=== PATIENT | male | born 1985 | race Caucasian/White ===

== ENCOUNTER 2023-01-04 14:26 | Emergency (ER) | payer MEDICAID, OTHER ==
[~2023-01-04] VITALS: Ht 175.3 cm; Wt 124.3 kg
[2023-01-04 14:32] VITALS: BP 159/104
--- NOTE | 2023-01-04 14:36 | ED Upper Extremity ---
General Chief Complaint: Upper Extremity Stated Complaint: LT FINGER LAC Source: patient Exam Limitations: no limitations History of Present Illness Date Seen by Provider: Jan 04, 2023 Time Seen by Provider: 14:32 Initial Comments 37-year-old male that is [id number] with no pertinent past medical history coming in after he was pushing some garbage into a bin, and glass came through and cut his left index finger. Happened shortly prior to arrival. Meraz ving constant, throbbing pain that is mild. Nothing really seems to make it better or worse. He wrapped it up and then came here. He believes his last tetanus vaccine was more than 10 years ago. Otherwise denying any other acute complaints Allergies and Home Medications Allergies Coded Allergies: No Known Drug Allergies (Unverified , 01/04/23) Patient Home Medication List Home Medication List Reviewed: Yes Review of Systems Constitutional: No fever EENTM: no symptoms reported Respiratory: no symptoms reported Cardiovascular: no symptoms reported Gastrointestinal: no symptoms reported Past Zbnraic-Rkgmdy-Kzptdm Hx Patient Social History Substance use?: No Physical Exam Vital Signs Vital Signs - First Documented 01/04/23 14:32 Temp 36.1 Pulse 112 Resp 16 B/P (MAP) 159/104 (122) Pulse Ox 98 O2 Delivery Room Air Capillary Refill : Height, Weight, BMI Height: '" Weight: lbs. oz. kg; BMI Method: General Appearance: WD/WN, no apparent distress HEENT: PERRL/EOMI, normal ENT inspection, pharynx normal Neck: non-tender, full range of motion, supple, normal inspection Cardiovascular: regular rate, rhythm, no edema, no murmur Respiratory: chest non-tender, lungs clear, normal breath sounds, no respiratory distress, no accessory muscle use Gastrointestinal: normal bowel sounds, non tender, soft Shoulder: normal inspection Elbow/Forearm: normal inspection Wrist: Yes normal inspection Hand: Left (Left index finger on radial side proximally with a 3.5 cm laceration that is into subcutaneous tissue, no bone visualized, neurovascularly intact distal to the injury, normal tendon function) Neurologic/Tendon: normal sensation, normal motor functions, normal tendon functions Neurologic/Psychiatric: no motor/sensory deficits, alert, normal mood/affect Skin: normal color, warm/dry, other (Laceration to left index finger) Procedures/Interventions Wound Location: Upper Extremities Other Wound Location left index finger Wound Length (cm): 3.5 Wound's Depth, Shape: sub Q Wound Explored: clean Irrigated w/ Saline (ccs): 500 Anesthesia: 1% Lidocaine Volume Anesthetic (ccs): 4 Suture: Ethlion Suture Size: 4-0 Number of Sutures: 7 Progress A digital block was performed after cleaning the area, 27-gauge needle used, 4 cc of 1% lidocaine was infiltrated. Good anesthesia was achieved. Entire depth of the wound was visualized with no foreign body. Afterwards was closed with simple interrupted sutures. Progress/Results/Core Measures Results/Orders My Orders Orders - JEREMY FINCH MD Dipht,Pertuss(Acell),Tet Adult (Boostrix (01/04/23 14:45) Medications Given in ED Current Medications Medications Dose Ordered Sig/Dee Route Start Time Stop Time Status Last Admin Dose Admin Diphtheria/ Tetanus/Acell Pertussis 0.5 ml ONCE ONCE IM 01/04/23 14:45 01/04/23 14:46 DC 01/04/23 14:54 0.5 ML Vital Signs/I&O 01/04/23 14:32 Temp 36.1 Pulse 112 Resp 16 B/P (MAP) 159/104 (122) Pulse Ox 98 O2 Delivery Room Air Progress Progress Note : Progress Note 37-year-old male presenting after a laceration to his left index finger ABCs were intact and vitals were stable on presentation. Tdap updated today. Digital block was performed, entire depth of the wound was visualized with no foreign body, specifically no glass seen or felt. The wound was cleaned and closed. Should come back in 7 to 10 days for stitch removal Departure Impression Primary Impression: Finger laceration Qualified Codes: S61.211A - Laceration without foreign body of left index finger without damage to nail, initial encounter Disposition: HOME, SELF-CARE Condition: Stable Departure-Patient Inst. Decision time for Depature: 15:07 Referrals: NO,LOCAL PHYSICIAN (PCP/Family) Primary Care Physician Patient Instructions: Laceration Repair With Stitches ED Add. Discharge Instructions: Come back to the ER on January 15 to get your stitches removed. If you notice any redness spreading up your arm, pus coming out of the wound, or new fever then please have the wound evaluated as soon as possible. Take ibuprofen or Tylenol as needed for pain. Do not let the wound get submerged in any type of water until the stitches are out. After 24 hours, you can briefly let water run over it in the shower or when washing her hands, but do not scrub it. Immediately put antibiotic ointment and put a Band-Aid on it after bathing. Work/School Note: Work Release Form Date Seen in the Emergency Department: Jan 04, 2023 Return to Work: Jan 05, 2023 Restrictions: No Restrictions JEREMY FINCH MD Jan 04, 2023 14:36
[2023-01-04] MEDS ORDERED: TETANUS,DIPTH,PERTUSS P/F (BOOSTRIX) 0.5 ML VIAL IM ONE (14:45)
== END 2023-01-04 15:10 | disposition home or self-care (01) ==
LOC: ER FS 14:27
DX: S61.211A Laceration without foreign body of left index finger without damage to nail, initial encounter (principal); Z23 Encounter for immunization; Z28.310 Unvaccinated for COVID-19; W25.XXXA Contact with sharp glass, initial encounter
CPT/HCPCS: 12002; 90715

== ENCOUNTER 2023-06-03 10:42 | Emergency (ER) | payer MEDICAID ==
[~2023-06-03] VITALS: Ht 175.3 cm; Wt 124.3 kg
--- NOTE | 2023-06-03 10:48 | ED Cardiac General ---
History of Present Illness General Stated Complaint: CHEST PAIN History of Present Illness Date Seen by Provider: Jun 03, 2023 Time Seen by Provider: 10:48 Initial Comments 38-year-old male presents with some occasional dizziness, mild "pinching" in his chest this been going on and off for about a 5 days. Patient reports that he called his primary care's office and they sent him in to have it checked out. Patient is not really currently experiencing symptoms. No nausea, vomiting or radiation of the pain. Patient does admit that he is a smoker. Approximately 45 minutes after arrival he made the comment that if he uses an albuterol inh aler that the chest pain just goes away. Allergies and Home Medications Allergies Coded Allergies: No Known Drug Allergies (Unverified , 01/04/23) Patient Home Medication List Home Medication List Reviewed: Yes Review of Systems Review of Systems Constitutional: No chills; dizziness; No fever Respiratory: Denies Cough, Denies Shortness of Air Cardiovascular: Chest Pain, Lightheadedness; Denies Syncope Gastrointestinal: Denies Abdominal Pain, Denies Nausea, Denies Vomiting Musculoskeletal: no symptoms reported Skin: no symptoms reported Psychiatric/Neurological: No Symptoms Reported Endocrine: No Symptoms Reported Past Lpenusv-Vstciz-Engqag Hx Past Medical History Surgery/Hospitalization HX: HTN Physical Exam Vital Signs Vital Signs - First Documented 06/03/23 06/03/23 10:42 11:50 Temp 36.2 Pulse 104 Resp 16 B/P (MAP) 150/78 (102) Pulse Ox 98 O2 Delivery Room Air Capillary Refill : Height, Weight, BMI Height: '" Weight: lbs. oz. kg; 40.00 BMI Method: General Appearance: No Apparent Distress, WD/WN Respiratory: Lungs Clear, Normal Breath Sounds Cardiovascular: Regular Rate, Rhythm, No Edema Extremity: Normal Capillary Refill, Normal Inspection, Normal Range of Motion Neurologic/Psychiatric: Alert, Oriented x3, No Motor/Sensory Deficits, Normal Mood/Affect, lift driver II-XII Norm as Tested Skin: Normal Color, Warm/Dry Procedures/Interventions Suture Size: 4-0 Progress/Results/Core Measures Results/Orders Lab Results Laboratory Tests Test 06/03/23 10:50 Range/Units White Blood Count 11.7 H 4.3-11.0 10^3/uL Red Blood Count 4.82 4.30-5.52 10^6/uL Hemoglobin 15.9 13.3-17.7 g/dL Hematocrit 45 40-54 % Mean Corpuscular Volume 94 80-99 fL Mean Corpuscular Hemoglobin 33 25-34 pg Mean Corpuscular Hemoglobin Concent 35 32-36 g/dL Red Cell Distribution Width 11.9 10.0-14.5 % Platelet Count 222 130-400 10^3/uL Mean Platelet Volume 10.6 9.0-12.2 fL Immature Granulocyte % (Auto) 1 % Neutrophils (%) (Auto) 63 42-75 % Lymphocytes (%) (Auto) 29 12-44 % Monocytes (%) (Auto) 6 0-12 % Eosinophils (%) (Auto) 1 0-10 % Basophils (%) (Auto) 0 0-10 % Neutrophils # (Auto) 7.4 1.8-7.8 10^3/uL Lymphocytes # (Auto) 3.4 1.0-4.0 10^3/uL Monocytes # (Auto) 0.8 0.0-1.0 10^3/uL Eosinophils # (Auto) 0.1 0.0-0.3 10^3/uL Basophils # (Auto) 0.0 0.0-0.1 10^3/uL Immature Granulocyte # (Auto) 0.1 0.0-0.1 10^3/uL Sodium Level 139 135-145 MMOL/L Potassium Level 3.7 3.6-5.0 MMOL/L Chloride Level 104 98-107 MMOL/L Carbon Dioxide Level 25 21-32 MMOL/L Anion Gap 10 5-14 MMOL/L Blood Urea Nitrogen 16 7-18 MG/DL Creatinine 1.01 0.60-1.30 MG/DL Estimat Glomerular Filtration Rate 98 BUN/Creatinine Ratio 16 Glucose Level 127 H 70-105 MG/DL Calcium Level 10.0 8.5-10.1 MG/DL Corrected Calcium 9.6 8.5-10.1 MG/DL Magnesium Level 2.1 1.6-2.4 MG/DL Total Bilirubin 0.4 0.1-1.0 MG/DL Aspartate Amino Transf (AST/SGOT) 26 5-34 U/L Alanine Aminotransferase (ALT/SGPT) 33 0-55 U/L Alkaline Phosphatase 83 40-136 U/L Troponin I < 0.30 <0.30 NG/ML Total Protein 7.1 6.4-8.2 GM/DL Albumin 4.5 3.2-4.5 GM/DL My Orders Orders - DOTTIE BOATENG DO Cbc With Automated Diff (06/03/23 10:51) Comprehensive Metabolic Panel (06/03/23 10:51) Magnesium (06/03/23 10:51) Troponin I Fs (06/03/23 10:51) Ekg Tracing (06/03/23 10:51) Monitor-Rhythm Ecg Trace Only (06/03/23 10:51) Chest 1 View Ap/Pa Only (06/03/23 10:51) Ns Iv 1000 Ml (Sodium Chloride 0.9%) (06/03/23 11:04) Ed Iv/Invasive Line Start (06/03/23 11:11) Vital Signs/I&O 06/03/23 06/03/23 10:42 11:50 Temp 36.2 36.2 Pulse 104 73 Resp 16 18 B/P (MAP) 150/78 (102) 135/86 Pulse Ox 98 O2 Delivery Room Air Room Air Progress Progress Note : Progress Note Patient's diagnostic studies were ordered reviewed and interpreted by me with no acute findings with a negative troponin. Patient's symptoms are likely more pulmonary versus cardiac as his symptoms improve when he uses a inhaler. He does admit to frequent tobacco use and we had a long conversation regarding quitting tobacco. Patient is EKG showed no acute findings. 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 Patient was stable and discharged home Initial ECG Impression Date: Jun 03, 2023 Initial ECG Impression Time: 10:50 Initial ECG Rate: 108 Initial ECG Rhythm: S.Tach Initial ECG Intervals: Normal Initial ECG Impression: Normal Comment sinus tach, no acute changes. Diagnostic Imaging Diagonstic Imaging: Xray Plain Films/CT/US/NM/MRI: chest Comments Date of Exam:06/03/23 CHEST 1 VIEW AP/PA ONLY Indication: Chest pain Portable AP view of chest is obtained. COMPARISON: No previous study is available for comparison at this time. FINDINGS: Heart size and pulmonary vasculature are within normal limits, and the lungs are clear, bilaterally. There are multiple old right rib fractures several of which are treated with microplate and screws. IMPRESSION: Unremarkable chest. Departure Impression Primary Impression: Chest pain Qualified Codes: R07.9 - Chest pain, unspecified Disposition: 01 HOME, SELF-CARE Condition: Stable Departure-Patient Inst. Referrals: RAJINDER ANN APRN (PCP) Primary Care Physician [facility] (Family) Primary Care Physician Patient Instructions: Chest Pain That Is Not Caused by the Heart (DC), Quitting smoking, Smoking: Not Just Harmful to Your Lungs and Heart Add. Discharge Instructions: Please keep your appointment with your primary care provider. You may continue your daily aspirin and fish oil. Please discuss with your primary care provider to help with stopping smoking. DOTTIE BOATENG DO Jun 03, 2023 10:48
[2023-06-03 10:56] LABS: BASOPHILS % (AUTO) 0 % (0-10); EOSINOPHILS # (AUTO) 0.1 10^3/uL (0.0-0.3); EOSINOPHILS % (AUTO) 1 % (0-10); HEMATOCRIT 45 % (40-54); HEMOGLOBIN 15.9 g/dL (13.3-17.7); LYMPHOCYTES # (AUTO) 3.4 10^3/uL (1.0-4.0); LYMPHOCYTES % (AUTO) 29 % (12-44); MEAN CORPUSCULAR HEMOGLOBIN 33 pg (25-34); MEAN CORPUSCULAR HGB CONC 35 g/dL (32-36); MEAN CORPUSCULAR VOLUME 94 fL (80-99); MEAN PLATELET VOLUME 10.6 fL (9.0-12.2); MONOCYTES # (AUTO) 0.8 10^3/uL (0.0-1.0); MONOCYTES % (AUTO) 6 % (0-12); NEUTROPHILS # (AUTO) 7.4 10^3/uL (1.8-7.8); NEUTROPHILS % (AUTO) 63 % (42-75); PLATELET COUNT 222 10^3/uL (130-400); WHITE BLOOD COUNT 11.7 10^3/uL (4.3-11.0)
[2023-06-03] MEDS ORDERED: NS IV 1000 ML 1,000 ML IV STA (11:04)
[2023-06-03 11:16] LABS: BUN/CREATININE RATIO 16; CARBON DIOXIDE 25 MMOL/L (21-32); CHLORIDE 104 MMOL/L (98-107); CREATININE SERUM 1.01 MG/DL (0.60-1.30); GFR ESTIMATED 98; GLUCOSE 127 MG/DL (70-105); MAGNESIUM 2.1 MG/DL (1.6-2.4); POTASSIUM 3.7 MMOL/L (3.6-5.0); SODIUM 139 MMOL/L (135-145)
[2023-06-03 11:17] LABS: ALANINE AMINOTRANSFERASE 33 U/L (0-55); ALBUMIN 4.5 GM/DL (3.2-4.5); ALKALINE PHOSPHATASE 83 U/L (40-136); BILIRUBIN,TOTAL 0.4 MG/DL (0.1-1.0); TOTAL PROTEIN 7.1 GM/DL (6.4-8.2)
--- NOTE | 2023-06-03 11:25 | Diagnostic Imaging Report ---
Indication: Chest pain Portable AP view of chest is obtained. COMPARISON: No previous study is available for comparison at this time. FINDINGS: Heart size and pulmonary vasculature are within normal limits, and the lungs are clear, bilaterally. There are multiple old right rib fractures several of which are treated with microplate and screws. IMPRESSION: Unremarkable chest. Dictated by: Dictated on workstation # [id number]
[2023-06-03 11:50] VITALS: BP 135/86
== END 2023-06-03 11:50 | disposition home or self-care (01) ==
LOC: EDUNIT# 10:42 → ER FS 10:43
DX: R07.9 Chest pain, unspecified (principal); Z28.310 Unvaccinated for COVID-19
CPT/HCPCS: 36415; 71045; 80053; 83735; 84484; 85025; 93005; 93041